=== PATIENT | female | born 1965 | race Caucasian/White ===

== ENCOUNTER 2020-12-31 08:32 | Day surgery (SDC) | payer OTHER ==
[2020-12-26 09:59] VITALS: BMI 26.2
[~2020-12-31 08:32] MED LIST: LACTATED RINGERS 1,000 ML IV SCH; LIDOCAINE 1% (10MG/ML) FOR IV START INTRADERMA PRN; LIDOCAINE 1% INJ 10MG/ML (20 ML MDV) ONE; PROPOFOL 10 MG/ML 20 ML VIAL IV ONE
[2020-12-31 09:10] VITALS: RESP 16; TEMP 97
--- NOTE | 2020-12-31 09:54 | P.PCN ---
Date of Procedure: 12/31/20 Procedure(s) Performed: BRIEF HISTORY: Patient is a 55-year-old, pleasant, white female with history of liver cirrhosis and prior history of esophageal variceal bleeding is scheduled for an upper endoscopy as part of follow-up of esophageal varices and for esophageal variceal ligation.. PROCEDURE PERFORMED: Esophagogastroduodenoscopy with variceal ligation. PREOPERATIVE DIAGNOSIS: Follow-up esophageal varices. IV sedation per anesthesia. PROCEDURE: After informed consent was obtained, the patient was brought into the endoscopy unit. IV sedation was administered by Anesthesia under continuous monitoring. Initially the Olympus GIF-140 video endoscope was inserted into the mouth. Esophagus intubated without any difficulty. It was gradually advanced into the stomach and duodenum and carefully examined. The bulb and the second part of the duodenum appeared normal. The scope at this time was withdrawn to the stomach, adequately insufflated with air, and upon careful examination, mucosa of the antrum, body appeared normal. There was mild portal hypertensive gastropathy involving the fundus of the stomach., The cardia appeared normal. The scope was then withdrawn into the esophagus. The GE junction was located at 396 cm from the incisors. There were no erosions or ulcerations seen. There were small distal esophageal varices noted. At this time the scope was withdrawn and the appendiceal ligation equipment was introduced into the tip of the scope and esophagus reintubated without any difficulty. The scope was advanced into the distal esophagus. Using suction 3 bands were deployed in the esophageal varices located in the distal esophagus. The rest of esophagus appeared normal and the patient tolerated the procedure well. IMPRESSION: 1..Small distal esophageal varices status post variceal ligation as described above 2. Mild portal hypertensive gastropathy RECOMMENDATIONS: The findings of this examination were discussed with the patient [as well as a family. She will be on a soft diet today. We'll plan a repeat upper endoscopy with variceal ligation in 6 months.
[2020-12-31 10:20] VITALS: BP 119/71; PULSE 83
== END 2020-12-31 10:44 | disposition home or self-care (01) ==
LOC: ORWHC2ENDO 08:32
PROVIDERS: ATTEND Internal Medicine Gastroenterology
DX: I85.10 Secondary esophageal varices without bleeding (principal); K74.60 Unspecified cirrhosis of liver; Z79.1 Long term (current) use of non-steroidal anti-inflammatories (NSAID); Z79.899 Other long term (current) drug therapy; K76.6 Portal hypertension; I10 Essential (primary) hypertension; F17.210 Nicotine dependence, cigarettes, uncomplicated; K21.9 Gastro-esophageal reflux disease without esophagitis; Z90.710 Acquired absence of both cervix and uterus; Z98.42 Cataract extraction status, left eye; Z98.41 Cataract extraction status, right eye; Z88.8 Allergy status to other drugs, medicaments and biological substances
CPT/HCPCS: 43244; J2001; J2704

== ENCOUNTER 2021-01-27 12:52 | Day surgery (SDC) | payer OTHER ==
[2021-01-27 13:45] LABS: Mean Platelet Volume 8.8; Platelet Count 132 k/uL (150-450)
[2021-01-27 13:52] LABS: Prothrombin Time 10.7 sec (9.0-12.0)
[2021-01-27 13:53] LABS: African American GFR (CKD) >90 (>60 ml/min/1.73 sqM); Non-African American GFR(CKD) >90 (>60 ml/min/1.73 sqM)
[2021-01-27 14:26] VITALS: RESP 18; TEMP 97.9
[2021-01-27] MEDS: ALBUMIN HUMAN 25% 50 ML in EMPTY BAG 1 BAG IVPB SCH ×4 (14:49→15:30)
--- NOTE | 2021-01-27 16:48 | US ---
EXAMINATION TYPE: US paracentesis abd w/image DATE OF EXAM: 01/27/2021 COMPARISON: NONE HISTORY: Ascites. PROCEDURE: Maximal barrier technique was utilized. The skin overlying a suitable pocket of fluid was localized with ultrasound and the overlying skin was prepped and draped. Ultrasound was utilized with sterile technique. Lidocaine was used for local anesthesia and a skin mihir made with a scalpel. Catheter was advanced under direct ultrasound guidance into a suitable pocket of fluid and approximately 12 liters of serous fluid were removed. Catheter was withdrawn and hemostasis achieved. There is no immediat e complication; the patient is discharged in stable condition. IMPRESSION: STATUS POST ULTRASOUND GUIDED PARACENTESIS FOR PALLIATION OF ASCITES. THIS PROCEDURE WA S PERFORMED BY THE UNDERSIGNED.
[2021-01-27 17:00] VITALS: PULSE 78
[2021-01-27 17:01] VITALS: BP 101/70
== END 2021-01-27 16:45 | disposition home or self-care (01) ==
LOC: RADPROMAIN 12:52
PROVIDERS: ATTEND Internal Medicine Gastroenterology
DX: R18.8 Other ascites (principal)
CPT/HCPCS: 82565; 85049; 85610; 36415; 49083; P9047

== ENCOUNTER 2021-02-10 12:25 | Day surgery (SDC) | payer OTHER ==
[2021-02-10 12:58] LABS: Mean Platelet Volume 8.7; Platelet Count 118 k/uL (150-450)
[2021-02-10 13:12] LABS: Prothrombin Time 10.3 sec (9.0-12.0)
[2021-02-10 13:34] VITALS: TEMP 98.6
[2021-02-10] MEDS: ALBUMIN HUMAN 25% 50 ML in EMPTY BAG 1 BAG IVPB SCH ×4 (13:53→14:34)
[2021-02-10 15:33] VITALS: BP 90/56; PULSE 76; RESP 18
--- NOTE | 2021-02-10 16:33 | US ---
Ultrasound-guided paracentesis. DATE OF EXAM: 02/10/2021 CLINICAL HISTORY: Ascites The procedure was discussed with the patient. The risks, complications, benefits, and alternatives we re discussed and any questions were answered. Informed consent was obtained. The patient was placed s upine on the ultrasound table and prepped and draped in the usual sterile fashion. All elements of maximal barrier technique were utilized. Under ultrasound guidance, access into the right lower quadrant was obtained, via the paracentesis catheter system and direct ultrasound guidanc e. Approximately 10.7 liters of straw-colored fluid was removed. The patient was stable throughout the p rocedure and remained stable upon discharge from Department of Radiology. IMPRESSION: Successful paracentesis under ultrasound guidance.
== END 2021-02-10 15:45 | disposition home or self-care (01) ==
LOC: RADPROMAIN 12:25
PROVIDERS: ATTEND Internal Medicine Gastroenterology
DX: R18.8 Other ascites (principal)
CPT/HCPCS: 82565; 85049; 85610; 36415; 49083; P9047

== ENCOUNTER 2021-03-10 12:22 | Day surgery (SDC) | payer OTHER ==
[~2021-03-10 12:22] MED LIST changes: +ALBUMIN HUMAN 25% 50 ML in EMPTY BAG 1 BAG IVPB SCH; -LACTATED RINGERS 1,000 ML IV SCH; -LIDOCAINE 1% (10MG/ML) FOR IV START INTRADERMA PRN; -LIDOCAINE 1% INJ 10MG/ML (20 ML MDV) ONE; -PROPOFOL 10 MG/ML 20 ML VIAL IV ONE
[2021-03-10 13:08] VITALS: RESP 16; TEMP 98.1
[2021-03-10 13:15] LABS: Mean Platelet Volume 9.4
[2021-03-10 13:25] LABS: Platelet Count 81 k/uL (150-450)
[2021-03-10 13:28] LABS: INR 0.9 (<1.2); Prothrombin Time 10.2 sec (9.0-12.0)
[2021-03-10] MEDS: ALBUMIN HUMAN 25% 50 ML in EMPTY BAG 1 BAG IVPB SCH ×4 (13:32→14:16)
[2021-03-10 16:00] VITALS: BP 89/56; PULSE 79
--- NOTE | 2021-03-10 16:34 | US ---
EXAMINATION TYPE: US paracentesis abd w/image DATE OF EXAM: 03/10/2021 COMPARISON: NONE HISTORY: Ascites. PROCEDURE: Maximal barrier technique was utilized. The skin overlying a suitable pocket of fluid was localized with ultrasound and the overlying skin was prepped and draped. Ultrasound was utilized with sterile technique. Lidocaine was used for local anesthesia and a skin mihir made with a scalpel. Catheter was advanced under direct ultrasound guidance into a suitable pocket of fluid and approximately 7.8 liter s of serous fluid were removed. Catheter was withdrawn and hemostasis achieved. There is no immedia te complication; the patient is discharged in stable condition. IMPRESSION: STATUS POST ULTRASOUND GUIDED PARACENTESIS FOR PALLIATION OF ASCITES. THIS PROCEDURE WA S PERFORMED BY THE UNDERSIGNED.
== END 2021-03-10 15:50 | disposition home or self-care (01) ==
LOC: RADPROMAIN 12:22
PROVIDERS: ATTEND Internal Medicine Gastroenterology
DX: R18.8 Other ascites (principal)
CPT/HCPCS: 82565; 85049; 85610; 36415; 49083; P9047

== ENCOUNTER 2021-04-07 12:18 | Day surgery (SDC) | payer OTHER ==
[2021-04-07 13:04] VITALS: RESP 18; TEMP 98.2
[2021-04-07 13:13] LABS: Platelet Count 78 k/uL (150-450)
[2021-04-07 13:19] LABS: Prothrombin Time 10.9 sec (9.0-12.0)
[2021-04-07] MEDS: ALBUMIN HUMAN 25% 50 ML in EMPTY BAG 1 BAG IVPB SCH ×4 (13:34→15:20)
[2021-04-07 16:32] VITALS: BP 102/54; PULSE 74
--- NOTE | 2021-04-08 08:47 | US ---
Ultrasound-guided paracentesis. DATE OF EXAM: 04/07/2021 CLINICAL HISTORY: Ascites The procedure was discussed with the patient. The risks, complications, benefits, and alternatives we re discussed and any questions were answered. Informed consent was obtained. The patient was placed s upine on the ultrasound table and prepped and draped in the usual sterile fashion. All elements of maximal barrier technique were utilized. Under ultrasound guidance, access into the right lower quadrant was obtained, via the paracentesis catheter system and direct ultrasound guidanc e. Approximately 8.2 liters of straw-colored fluid was removed. The patient was stable throughout the pr ocedure and remained stable upon discharge from Department of Radiology. IMPRESSION: Successful paracentesis under ultrasound guidance.
== END 2021-04-07 16:10 | disposition home or self-care (01) ==
LOC: RADPROMAIN 12:18
PROVIDERS: ATTEND Internal Medicine Gastroenterology
DX: R18.8 Other ascites (principal)
CPT/HCPCS: 82565; 85049; 85610; 36415; 49083; P9047

== ENCOUNTER 2021-04-21 12:20 | Day surgery (SDC) | payer OTHER ==
[2021-04-21 12:45] LABS: Mean Platelet Volume 9.5; Platelet Count 75 k/uL (150-450)
[2021-04-21 12:51] VITALS: TEMP 98.5
[2021-04-21 12:53] LABS: Prothrombin Time 10.7 sec (9.0-12.0)
[2021-04-21 12:54] LABS: African American GFR (CKD) >90 (>60 ml/min/1.73 sqM); Non-African American GFR(CKD) >90 (>60 ml/min/1.73 sqM)
[2021-04-21] MEDS: ALBUMIN HUMAN 25% 50 ML in EMPTY BAG 1 BAG IVPB SCH ×4 (13:02→14:25)
[2021-04-21 15:06] VITALS: BP 99/66; PULSE 76; RESP 14
--- NOTE | 2021-04-21 16:36 | US ---
EXAMINATION TYPE: US paracentesis abd w/image DATE OF EXAM: 04/21/2021 COMPARISON: NONE HISTORY: Ascites. PROCEDURE: Maximal barrier technique was utilized. The skin overlying a suitable pocket of fluid was localized with ultrasound and the overlying skin was prepped and draped. Ultrasound was utilized with sterile technique. Lidocaine was used for local anesthesia and a skin mihir made with a scalpel. Catheter was advanced under direct ultrasound guidance into a suitable pocket of fluid and approximately 5.9 liter s of serous fluid were removed. Catheter was withdrawn and hemostasis achieved. There is no immedia te complication; the patient is discharged in stable condition. IMPRESSION: STATUS POST ULTRASOUND GUIDED PARACENTESIS FOR PALLIATION OF ASCITES. THIS PROCEDURE WA S PERFORMED BY THE UNDERSIGNED.
== END 2021-04-21 15:22 | disposition home or self-care (01) ==
LOC: RADPROMAIN 12:20
PROVIDERS: ATTEND Internal Medicine Gastroenterology
DX: R18.8 Other ascites (principal)
CPT/HCPCS: 82565; 85049; 85610; 36415; 49083; P9047

== ENCOUNTER 2021-05-07 12:12 | Day surgery (SDC) | payer OTHER ==
[2021-05-07 12:25] VITALS: RESP 16; TEMP 98.7
[2021-05-07 12:56] LABS: Mean Platelet Volume 7.8; Platelet Count 59 k/uL (150-450)
[2021-05-07 12:58] LABS: Prothrombin Time 10.6 sec (9.0-12.0)
[2021-05-07 13:02] LABS: African American GFR (CKD) >90 (>60 ml/min/1.73 sqM); Non-African American GFR(CKD) >90 (>60 ml/min/1.73 sqM)
[2021-05-07] MEDS: ALBUMIN HUMAN 25% 50 ML in EMPTY BAG 1 BAG IVPB SCH ×4 (13:43→14:32)
[2021-05-07 14:33] VITALS: PULSE 83
[2021-05-07 14:47] VITALS: BP 92/64
--- NOTE | 2021-05-07 17:24 | US ---
EXAMINATION TYPE: US paracentesis abd w/image DATE OF EXAM: 05/07/2021 COMPARISON: NONE HISTORY: Ascites. PROCEDURE: Maximal barrier technique was utilized. The skin overlying a suitable pocket of fluid was localized with ultrasound and the overlying skin was prepped and draped. Ultrasound was utilized with sterile technique. Lidocaine was used for local anesthesia and a skin mihir made with a scalpel. Catheter was advanced under direct ultrasound guidance into a suitable pocket of fluid and approximately 5 liters of serous fluid were removed. Catheter was withdrawn and hemostasis achieved. There is no immediate complication; the patient is discharged in stable condition. IMPRESSION: STATUS POST ULTRASOUND GUIDED PARACENTESIS FOR PALLIATION OF ASCITES. THIS PROCEDURE WA S PERFORMED BY THE UNDERSIGNED.
== END 2021-05-07 15:10 | disposition home or self-care (01) ==
LOC: RADPROMAIN 12:12
PROVIDERS: ATTEND Internal Medicine Gastroenterology
DX: R18.8 Other ascites (principal)
CPT/HCPCS: 82565; 85049; 85610; 36415; 49083; P9047

== ENCOUNTER 2021-05-21 08:59 | Day surgery (SDC) | payer OTHER ==
[2021-05-21 09:40] LABS: Mean Platelet Volume 8.3
[2021-05-21 09:45] LABS: African American GFR (CKD) >90 (>60 ml/min/1.73 sqM); Non-African American GFR(CKD) >90 (>60 ml/min/1.73 sqM)
[2021-05-21 09:46] LABS: INR 0.9 (<1.2)
[2021-05-21 09:59] LABS: Platelet Count 68 k/uL (150-450)
[2021-05-21 10:14] VITALS: TEMP 98.2
[2021-05-21] MEDS: ALBUMIN HUMAN 25% 50 ML in EMPTY BAG 1 BAG IVPB SCH (11:09)
[2021-05-21 11:11] VITALS: BP 105/63; PULSE 110; RESP 16
--- NOTE | 2021-05-21 14:17 | US ---
EXAMINATION TYPE: US paracentesis abd w/image DATE OF EXAM: 05/21/2021 COMPARISON: NONE HISTORY: Ascites. PROCEDURE: Maximal barrier technique was utilized. The skin overlying a suitable pocket of fluid was localized with ultrasound and the overlying skin was prepped and draped. Ultrasound was utilized with sterile technique. Lidocaine was used for local anesthesia and a skin mihir made with a scalpel. Catheter was advanced under direct ultrasound guidance into a suitable pocket of fluid and approximately 1.6 liter s of serous fluid were removed. Catheter was withdrawn and hemostasis achieved. There is no immedia te complication; the patient is discharged in stable condition. IMPRESSION: STATUS POST ULTRASOUND GUIDED PARACENTESIS FOR PALLIATION OF ASCITES. THIS PROCEDURE WA S PERFORMED BY THE UNDERSIGNED.
== END 2021-05-21 11:08 | disposition home or self-care (01) ==
LOC: RADPROMAIN 08:59
PROVIDERS: ATTEND Internal Medicine Gastroenterology
DX: R18.8 Other ascites (principal)
CPT/HCPCS: 36415; 49083; 82565; 85049; 85610

== ENCOUNTER 2021-06-23 12:27 | Day surgery (SDC) | payer OTHER ==
[2021-06-23 12:59] LABS: Mean Platelet Volume 8.2
[2021-06-23 13:01] LABS: Platelet Count 62 k/uL (150-450); Prothrombin Time 10.5 sec (9.0-12.0)
[2021-06-23 13:02] VITALS: TEMP 98.4
[2021-06-23 13:06] LABS: African American GFR (CKD) >90 (>60 ml/min/1.73 sqM); Non-African American GFR(CKD) 85 (>60 ml/min/1.73 sqM)
[2021-06-23 14:35] VITALS: PULSE 80
[2021-06-23 14:45] VITALS: BP 103/67; RESP 14
--- NOTE | 2021-06-23 16:23 | US ---
EXAMINATION TYPE: US paracentesis abd w/image DATE OF EXAM: 06/23/2021 COMPARISON: NONE HISTORY: Ascites. PROCEDURE: Maximal barrier technique was utilized. The skin overlying a suitable pocket of fluid was localized with ultrasound and the overlying skin was prepped and draped. Ultrasound was utilized with sterile technique. Lidocaine was used for local anesthesia and a skin mihir made with a scalpel. Catheter was advanced under direct ultrasound guidance into a suitable pocket of fluid and approximately 3.8 liter s of serous fluid were removed. Catheter was withdrawn and hemostasis achieved. There is no immedia te complication; the patient is discharged in stable condition. IMPRESSION: STATUS POST ULTRASOUND GUIDED PARACENTESIS FOR PALLIATION OF ASCITES. THIS PROCEDURE WA S PERFORMED BY THE UNDERSIGNED.
== END 2021-06-23 14:54 | disposition home or self-care (01) ==
LOC: RADPROMAIN 12:27
PROVIDERS: ATTEND Internal Medicine Gastroenterology
DX: R18.8 Other ascites (principal)
CPT/HCPCS: 36415; 49083; 82565; 85049; 85610

== ENCOUNTER 2021-07-14 12:37 | Day surgery (SDC) | payer OTHER ==
[2021-07-14 13:16] VITALS: RESP 16; TEMP 98.5
[2021-07-14 13:18] LABS: Mean Platelet Volume 8.1
[2021-07-14 13:23] LABS: Platelet Count 63 k/uL (150-450)
[2021-07-14 13:29] LABS: African American GFR (CKD) >90 (>60 ml/min/1.73 sqM); Non-African American GFR(CKD) >90 (>60 ml/min/1.73 sqM)
[2021-07-14] MEDS ORDERED: ALBUMIN HUMAN 25% 50 ML in EMPTY BAG 1 BAG IVPB SCH (14:00)
[2021-07-14 15:02] VITALS: BP 101/63; PULSE 82
--- NOTE | 2021-07-14 15:40 | US ---
Ultrasound-guided paracentesis. DATE OF EXAM: 07/14/2021 CLINICAL HISTORY: Ascites The procedure was discussed with the patient. The risks, complications, benefits, and alternatives we re discussed and any questions were answered. Informed consent was obtained. The patient was placed s upine on the ultrasound table and prepped and draped in the usual sterile fashion. All elements of maximal barrier technique were utilized. Under ultrasound guidance, access into the right lower quadrant was obtained, via the paracentesis catheter system and direct ultrasound guidanc e. Approximately 2.7 liters of straw-colored fluid was removed. The patient was stable throughout the pr ocedure and remained stable upon discharge from Department of Radiology. IMPRESSION: Successful paracentesis under ultrasound guidance.
== END 2021-07-14 14:50 | disposition home or self-care (01) ==
LOC: RADPROMAIN 12:37
PROVIDERS: ATTEND Internal Medicine Gastroenterology
DX: R18.8 Other ascites (principal)
CPT/HCPCS: 36415; 49083; 82565; 85049; 85610

== ENCOUNTER 2021-10-21 08:16 | Day surgery (SDC) | payer OTHER ==
[2021-10-19 11:40] VITALS: BMI 23.6
[~2021-10-21 08:16] MED LIST changes: -ALBUMIN HUMAN 25% 50 ML in EMPTY BAG 1 BAG IVPB SCH; +LACTATED RINGERS 1,000 ML IV SCH
[2021-10-21] MEDS ORDERED: LACTATED RINGERS 1,000 ML IV ONE (08:50)
[2021-10-21 08:54] VITALS: RESP 16; TEMP 96.6
[2021-10-21] MEDS ORDERED: LIDOCAINE 1% (10MG/ML) FOR IV START INTRADERMA ONE (09:05)
[2021-10-21] MEDS ORDERED: PROPOFOL 10 MG/ML 20 ML VIAL IV ONE (09:07)
[2021-10-21] MEDS ORDERED: LIDOCAINE 1% INJ 10MG/ML (20 ML MDV) ONE (09:07)
--- NOTE | 2021-10-21 09:15 | P.PCN ---
Date of Procedure: 10/21/21 Procedure(s) Performed: BRIEF HISTORY: Patient is a 56-year-old, pleasant, white female with history of liver cirrhosis and prior history of esophageal variceal bleeding is scheduled for an upper endoscopy as a part of follow-up of esophageal varices.. Last EGD was in December 2020 at which time he had esophageal variceal ligation. PROCEDURE PERFORMED: Esophagogastroduodenoscopy. PREOPERATIVE DIAGNOSIS: Follow-up esophageal varices. IV sedation per anesthesia. PROCEDURE: After informed consent was obtained, the patient was brought into the endoscopy unit. IV sedation was administered by Anesthesia under continuous monitoring. Initially the Olympus GIF-140 video endoscope was inserted into the mouth. Esophagus intubated without any difficulty. It was gradually advanced into the stomach and duodenum and carefully examined. The bulb and the second part of the duodenum appeared normal. The scope at this time was withdrawn to the stomach, adequately insufflated with air, and upon careful examination, mucosa of the antrum, appeared normal. There were changes consistent with mild portal hypertensive gastropathy involving the body, cardia of the stomach. The mucosa of the fundus appeared normal. The scope was then withdrawn into the esophagus. The GE junction was located at 39 cm from the incisors. Small hiatal hernia noted. The esophagus appeared normal. There were no erosions or ulcerations seen. No evidence of esophageal varices and the patient tolerated the procedure well. IMPRESSION: 1. No evidence of esophageal or gastric varices. 2. Mild follow hypertensive gastropathy. RECOMMENDATIONS: The findings of this examination were discussed with the patient as well as her family. She was advised to have a repeat upper endoscopy in 1 year. In the meantime she will continue on propranolol 10 mg 3 times daily..
[2021-10-21 09:44] VITALS: BP 96/61; PULSE 70
== END 2021-10-21 10:43 | disposition home or self-care (01) ==
LOC: ORWHC2ENDO 08:16
PROVIDERS: ATTEND Internal Medicine Gastroenterology
DX: Z09 Encounter for follow-up examination after completed treatment for conditions other than malignant neoplasm (principal); K74.60 Unspecified cirrhosis of liver; E78.5 Hyperlipidemia, unspecified; K21.9 Gastro-esophageal reflux disease without esophagitis; K76.6 Portal hypertension; K31.89 Other diseases of stomach and duodenum; Z79.899 Other long term (current) drug therapy
CPT/HCPCS: 43235; J2001; J2704

== ENCOUNTER 2022-10-19 08:48 | Day surgery (SDC) | payer OTHER ==
[2022-10-14 14:22] VITALS: BMI 25.6
[~2022-10-19 08:48] MED LIST changes: -LACTATED RINGERS 1,000 ML IV SCH; +LIDOCAINE 1% (10MG/ML) FOR IV START INTRADERMA PRN
[2022-10-19 10:10] VITALS: TEMP 97.2
[2022-10-19] MEDS: LACTATED RINGERS 1,000 ML IV SCH ×2 (10:21→10:34)
[2022-10-19] MEDS ORDERED: PROPOFOL 10 MG/ML 20 ML VIAL IV ONE (10:35)
[2022-10-19] MEDS ORDERED: LIDOCAINE 2% INJ 20 MG/ML (2 ML VIAL) ONE (10:35)
--- NOTE | 2022-10-19 10:44 | P.PCN ---
Date of Procedure: 10/19/22 Procedure(s) Performed: BRIEF HISTORY: Patient is a 57-year-old, pleasant, white female scheduled for an upper endoscopy to screen for esophageal varices. Patient has history of alcoholic liver disease with cirrhosis of the liver in 2019. She has prior history of esophageal variceal bleed 5 years ago.. PROCEDURE PERFORMED: Esophagogastroduodenoscopy. PREOPERATIVE DIAGNOSIS: Follow-up esophageal varices and history of liver cirrhosis. IV sedation per anesthesia. PROCEDURE: After informed consent was obtained, the patient was brought into the endoscopy unit. IV sedation was administered by Anesthesia under continuous monitoring. Initially the Olympus GIF-140 video endoscope was inserted into the mouth. Esophagus intubated without any difficulty. It was gradually advanced into the stomach and duodenum and carefully examined. The bulb and the second part of the duodenum appeared normal. The scope at this time was withdrawn to the stomach, adequately insufflated with air, and upon careful examination, mucosa of the antrum, body, had changes consistent with portal hypertensive gastropathy. Mucosa of the cardia and the fundus appeared normal. The gastric varices identified. The scope was then withdrawn into the esophagus. The GE junction was located at 39 cm from the incisors. The esophagus appeared normal. There were very small distal esophageal varices seen. There were no erosions or ulcerations seen and the patient tolerated the procedure well. IMPRESSION: 1.. Small distal esophageal varices. 2. Mild to moderate portal hypertensive gastropathy 3. No evidence of gastric varices. RECOMMENDATIONS: The findings of this examination were discussed with the patient as well as a family. She was advised to continue to remain abstinent from alcohol. We will plan a repeat upper endoscopy in 2-3 years..
[2022-10-19 11:09] VITALS: BP 102/60; PULSE 70; RESP 20
== END 2022-10-19 11:24 | disposition home or self-care (01) ==
LOC: ORWHC2ENDO 08:48
PROVIDERS: ATTEND Internal Medicine Gastroenterology
DX: I85.10 Secondary esophageal varices without bleeding (principal); K70.31 Alcoholic cirrhosis of liver with ascites; K76.6 Portal hypertension; K31.89 Other diseases of stomach and duodenum; F10.20 Alcohol dependence, uncomplicated; K21.9 Gastro-esophageal reflux disease without esophagitis; M19.90 Unspecified osteoarthritis, unspecified site; F17.200 Nicotine dependence, unspecified, uncomplicated; Z88.8 Allergy status to other drugs, medicaments and biological substances; Z79.1 Long term (current) use of non-steroidal anti-inflammatories (NSAID); Z79.01 Long term (current) use of anticoagulants; Z79.83 Long term (current) use of bisphosphonates; Z79.891 Long term (current) use of opiate analgesic; Z79.899 Other long term (current) drug therapy
CPT/HCPCS: 43235; J2704; J2001